=== PATIENT | male | born 1990 | race Caucasian/White ===

== ENCOUNTER 2017-07-05 06:31 | Emergency (ER) | payer OTHER ==
[~2017-07-05] VITALS: Ht 167.6 cm; Wt 59.1 kg
[~2017-07-05 06:31] MED LIST: NOCURR
[2017-07-05 08:02] VITALS: BP 110/79
== END 2017-07-05 08:08 | disposition home or self-care (01) ==
LOC: EMS 06:32
DX: S62.617A Displaced fracture of proximal phalanx of left little finger, initial encounter for closed fracture (principal); W18.30XA Fall on same level, unspecified, initial encounter; Y93.89 Activity, other specified; Y92.89 Other specified places as the place of occurrence of the external cause; Y99.8 Other external cause status
CPT/HCPCS: 99284